=== PATIENT | female | born 1975 | race African-American/Black ===

== ENCOUNTER → 2016-10-02 | Day surgery (SDC) | payer OTHER ==
--- NOTE | 2016-10-04 12:20 | PATH ---
Surgical Pathology Report Patient Name: JENNIFER MOELLER [facility]. Rec. #: [id number] /Age/Gender: 1975 (Age: 41) / F Account: [id number] Location: [facility] RADIOLOGY U Taken: 10/02/2016 Received: 10/02/2016 Reported: 10/04/2016 Physicians: Ayush Loya M.D. Specimen(s) Received A: LEFT BREAST CORE BIOPSY SITE 1 - 10:00 5CM FN B: LEFT BREAST CORE BIOPSY SITE 2 - 1:00 3CM FN Clinical History Ultrasound findings: Suspicious Final Diagnosis A. BREAST, LEFT, SITE #1, 10:00, 5 CM FN, CORE BIOPSY: BENIGN BREAST TISSUE SHOWING FIBROADENOMA. B. BREAST, LEFT, SITE #2, 1:00, 3CM FN, CORE BIOPSY: MYOFIBROBLASTOMA. 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 The lesion is comprised of short intersecting fascicles of spindle to oval cells with intervening thick bands of collagen. Immunohistochemical stains performed at [facility] demonstrate the lesional cells to be positive for SMM-HC while negative for AE 1/3 and S100. Immunohistochemical stains performed at [place], [place] ([id number]) demonstrate positivity in the lesional cells for SMA, CD34 and BCL-2. These findings support the diagnosis. Electronically Signed Natalie Aranda M.D. Gross Description A. Received in formalin labeled "site 1 left breast biopsy 10:00, 5 cmfn," is a 1.4 x 1.0 x 0.2 cm aggregate of multiple foley yellow, irregular to cylindrical portions of fibroadipose tissue. The formalin is filtered and the specimen is entirely submitted in one cassette. B. Received in formalin, labeled "site 2 left breast biopsy 1:00, 3 cmfn," are 6 foley-yellow, cylindrical portions of fibroadipose tissue ranging from 0.5-1.2 cm. in length and averaging 0.1 cm. in diameter. The specimen is submitted in toto in one cassette. Time to formalin fixation: 2 minutes Total formalin fixation time: Approximately 7 hours. saudi/10/02/2016
== END | disposition home or self-care (01) ==
LOC: FRADUS-SUR 09:51
PROVIDERS: ATTEND Surgery Surgical Oncology
PROC: 0HBU3ZX Excision of Left Breast, Percutaneous Approach, Diagnostic (ICD-10-PCS; principal; 2016-10-02)
DX: D24.2 Benign neoplasm of left breast (principal); N63 Unspecified lump in breast
CPT/HCPCS: 19083; 19084; 87899; 88305-TC; 88341-TC; 88342-TC; A4648; G0206-TC

== ENCOUNTER 2016-11-14 08:37 | Day surgery (SDC) | payer OTHER ==
[2016-11-05 16:31] VITALS: BMI 27.3
--- NOTE | 2016-11-11 09:38 | HP ---
Admitting History and Physical - Primary Care Physician PCP: Luciano Colindres - Admission Chief Complaint: left breast myofibroblastoma History of Present Illness: 41 yo female with h/o benign US core bxs in the past, was noted to have suspicious lesions on US in the left 1 and 10 o'clock position. Patient underwent a left breast US core bx on 10/02/2016. The 10 o'clock lesion was c/w fibroadenoma and the 1 o'clock lesion was c/w myofibroblastoma. Patient is now presenting for an excision of the myofibroblastoma. History Source: Patient Limitations to Obtaining History: No Limitations - Past Medical History ...LMP: 10/21/16 Endocrine: Yes: Diabetes Mellitus - Smoking History Smoking history: Never smoked Have you smoked in the past 12 months: No - Alcohol/Substance Use Hx Alcohol Use: Yes (socially) Home Medications - Allergies Allergies/Adverse Reactions: Allergies Allergy/AdvReac Type Severity Reaction Status Date / Time No Known Allergies Allergy Verified 11/05/16 16:32 - Home Medications Home Medications: Ambulatory Orders Glipizide 5 mg PO DAILY 11/05/16 Lactobacillus Acidophilus [Probiotic] 1 each PO DAILY 11/05/16 Multivit-Min/Iron Fum/Folic AC [Ejslt-Trvuuip-Beykrtlt Tablet] 1 tab PO DAILY Sitagliptin Phos/Metformin HCl [Janumet 50-1,000 mg Tablet] 1 each PO BID Family Disease History - Family Disease History Family History: Unremarkable Review of Systems - Review of Systems Constitutional: reports: No Symptoms Cardiovascular: reports: No Symptoms Respiratory: reports: No Symptoms Physical Examination Constitutional: Yes: Well Nourished, Calm Breast(s): Yes: Other (Moderately ptotic full C-cup without skin changes or nipple discharge. No suspicious masses or adenopathy noted bilaterally.) Problem List - Problems (1) Benign phyllodes tumor of left breast Code(s): D24.2 - BENIGN NEOPLASM OF LEFT BREAST Assessment/Plan Plan: Left breast excisional bx with NL
[2016-11-14] MEDS ORDERED: ONDANSETRON 4 MG/2 ML VIAL IVPB PRN (11:58)
[2016-11-14] MEDS ORDERED: KETOROLAC TROMETHAMINE 30 MG/1 ML VIAL IVPUSH PRN (11:58)
[2016-11-14] MEDS ORDERED: DEXTROSE 5%-0.45% SALINE 1,000 ML IV SCH (12:00)
[2016-11-14] MEDS ORDERED: MIDAZOLAM HCL 2 MG/2 ML SINGLE DOSE VIAL ONE (12:38)
[2016-11-14] MEDS ORDERED: PROPOFOL 20 ML ONE ×2 (12:38→13:17)
[2016-11-14] MEDS ORDERED: DEXAMETHASONE SOD PHOSPHATE 4 MG/1 ML VIAL ONE (12:58)
[2016-11-14] MEDS ORDERED: oxyCODONE HCL 5 MG TABLET PO PRN ×2 (14:00)
[2016-11-14] MEDS ORDERED: LACTATED RINGERS SOLUTION 1,000 ML IV SCH (14:00)
[2016-11-14] MEDS ORDERED: PROMETHAZINE HCL 25 MG/1 ML VIAL IVPUSH PRN (14:00)
[2016-11-14] MEDS ORDERED: ONDANSETRON 4 MG/2 ML VIAL IVPUSH PRN (14:00)
[2016-11-14 14:11] VITALS: TEMP 98.2
--- NOTE | 2016-11-14 14:38 | OP ---
DATE OF OPERATION: 11/14/2016 PREOPERATIVE DIAGNOSIS: Left breast myofibroblastoma. POSTOPERATIVE DIAGNOSIS: Left breast myofibroblastoma; await permanent section. PROCEDURE: Left breast excision with mammographic needle localization. ANESTHESIA: Local with IV sedation. SURGEON: Catherine Colindres MD [employer] WORKER: POWER Tom COMPLICATIONS: None. INDICATION FOR PROCEDURE: Briefly, the patient is a 41-year-old, G1, P1, female with no family history of breast or ovarian cancer. The patient has had a couple left breast ultrasound core biopsies in the past, showing fibroadenomas. She had a mammography and ultrasound in September of 2016 and was found to have a density in the right breast 10 o'clock region and the left breast 1 o'clock region. She underwent ultrasound core biopsies, and the right breast 10 o'clock region turned out to be a fibroadenoma, but the left breast 1 o'clock density turned out to be a myofibroblastoma. Full excision was recommended. Patient was brought in through ambulatory surgery on November 14, 2016, and underwent a mammographic needle localization of the clip. She was then brought to the holding area. In the holding area, site verification was made and informed consent was obtained. DESCRIPTION OF PROCEDURE: The patient was brought into the operating room and laid on the OR table in the supine position. Venodynes were placed on the lower extremities. She was given IV sedation. Given the small nature of the excision, no antibiotics were given. The left breast was sterilely prepped and draped in the usual fashion with the wire prepped in the field. Next, 1% lidocaine was given in the periareolar region just around the nipple-areolar complex of the left breast. A curvilinear incision was made as a periareolar incision, and dissection was undertaken around the needle localization. The breast tissue was completely removed from around the wire, making sure to remove a fair amount of tissue anterior to the wire where there were significant calcifications as well seen on mammography. The specimen was excised and oriented with a long lateral/short superior suture with the wire in the middle of the specimen. Specimen radiographs showed removal of the clip and multiple calcifications in question. Hemostasis was achieved. The specimen was placed in formalin to be sent down to Pathology for permanent section. A separate medial margin was taken and oriented with a suture marking the biopsy cavity side and sent separately to Pathology in formalin. The breast tissue was then reapproximated using 2-0 plain suture. The skin was closed using interrupted 3-0 deep dermal Vicryl suture and a running 4-0 subcuticular Biosyn suture. Mastisol and Steri-Strips were applied over the wound and a compressive dressing placed over this. The patient tolerated the procedure well, without difficulty and was awake and alert at the end of the procedure. She was placed in a surgical bra postoperatively. The patient will be discharged home once discharge criteria are met and will follow up in the office in 1 week for formal wound pathology check. CATHERINE COLINDRES M.D. [id number]
[2016-11-14 15:49] VITALS: BP 118/76; PULSE 74
--- NOTE | 2016-11-18 14:54 | PATH ---
Surgical Pathology Report Patient Name: JENNIFER MOELLER [facility]. Rec. #: [id number] /Age/Gender: 1975 (Age: 41) / F Account: [id number] Location: [facility] AMBULATORY Taken: 11/14/2016 Received: 11/14/2016 Reported: 11/18/2016 Physicians: Luciano Colindres M.D. Specimen(s) Received A: LEFT BREAST WIDE EXCISION B: LEFT BREAST LATERAL MARGIN Clinical History Core biopsy-myofibroblastoma, now fully excised Ultrasound findings: Probably benign Final Diagnosis A. BREAST, LEFT, WIDE EXCISION: BENIGN BREAST TISSUE SHOWING MYOFIBROBLASTOMA. REMAINING BREAST TISSUE SHOWS PROLIFERATIVE FIBROCYSTIC CHANGES AND SMALL INTRADUCTAL PAPILLOMA. PRIOR BIOPSY SITE CHANGES ARE PRESENT. B. BREAST, LEFT, LATERAL MARGIN, EXCISION: BENIGN BREAST TISSUE SHOWING RADIAL SCAR WITH ASSOCIATED PROLIFERATIVE FIBROCYSTIC CHANGES. Comment: See also prior left breast core biopsy [id number]. Electronically Signed Natalie Aranda M.D. Gross Description A. Received in formalin, labeled "left breast wide excision," is a 5.4 x 2.7 x 2.6 cm. foley-yellow, irregular, portion of fibroadipose tissue with a needle localization wire present. There is a short suture marking the superior aspect and a long suture marking the lateral aspect, per the surgeon. There is no skin present. The specimen is inked as follows: superior and lateral blue; inferior green; medial yellow; anterior red; deep black. The specimen is serially sectioned from superior to inferior. Sectioning reveals a 1.5 x 1.4 x 1.1 cm foley, well circumscribed, rubbery mass abutting the anterior margin and 0.3 cm from the superior margin. The remaining breast parenchyma displays abundant dense, white, focally firm fibrocystic tissue. Stamp Press Operator sections are submitted in 10 cassettes as follows: 1-4-mass (each with anterior and deep margins); 5-superior margin; 6-inferior margin; 7-medial margin; 8-lateral margin; [id number] fibrocystic tissue (each with lateral, anterior and deep margins). Time to formalin fixation: 3 minutes Total formalin fixation time: Approximately 29 hours. B. Received in formalin labeled "left breast lateral margin," is a 2.4 x 1.4 x 0.7 cm irregular portion of fibroadipose tissue with a suture marking the biopsy cavity side, per the surgeon. The new margin is inked blue and the specimen is serially sectioned. The specimen is entirely submitted in 2 cassettes. 11/15/201611/15/2016
== END 2016-11-14 15:40 | disposition home or self-care (01) ==
LOC: FASU 08:37
PROVIDERS: ATTEND Surgery Surgical Oncology
PROC: 0HBU0ZX Excision of Left Breast, Open Approach, Diagnostic (ICD-10-PCS; principal; 2016-11-14 13:10)
DX: D24.2 Benign neoplasm of left breast (principal)
CPT/HCPCS: 19281; 84703; 88307-TC